=== PATIENT | female | born 1985 ===

== ENCOUNTER 2017-05-04 00:10 | Emergency (ER) | payer OTHER ==
[2017-05-04 00:23] VITALS: RESP 18
--- NOTE | 2017-05-04 01:40 | ED PDOC ---
HPI: Female Pain Time Seen by Provider: 05/04/17 00:20 Chief Complaint (Nursing): Female Genitourinary Chief Complaint (Provider): Vaginal bleeding History Per: Patient History/Exam Limitations: no limitations Onset/Duration Of Symptoms: Days (x2 weeks) Current Symptoms Are (Timing): Still Present Additional Complaint(s): Kristen Medina is a 31 year old female with previous surgical history of sections, hernia repair, and tonsillectomy who presents to the emergency department with a complaint of vaginal bleeding associated with cramping ongoing for 2 weeks. Denies any nausea, vomiting, diarrhea, fever, chills, or urinary symptoms. Recently seen by her neighborhood conservation officer, Mateus Valdovinos MD , who diagnosed her with miscarriage. States that her bleeding has recently increased and experiencing blood clots. LMP: 03/10/17 G8, P2, A5 PMD: Jaycee Dubois MD Past Medical History Reviewed: Historical Data, Nursing Documentation, Vital Signs Vital Signs: Last Vital Signs Temp 98.1 F 05/04/17 00:19 Pulse 109 H 05/04/17 00:19 Resp 18 05/04/17 00:19 BP 127/79 05/04/17 00:19 Pulse Ox 99 05/04/17 00:19 - Medical History PMH: Anxiety, Depression - Surgical History Other surgeries: see above - Family History Family History: States: Unknown Family Hx - Social History Current smoker - smoking cessation education provided: No Alcohol: Social Drugs: Denies - Home Medications Home Medications: Ambulatory Orders Medication Instructions Recorded Amoxicillin/Clavulanate Pota 1 tab PO BID #14 tab 07/21/14 [Augmentin 875 mg-125 mg] Multivitamin4 [One Daily 1 tab PO DAILY 08/23/14 Multivitamins] [place]-3/Dha/Epa/Fish Oil [[place]-3] 1 cap PO DAILY 08/23/14 - Allergies Allergies/Adverse Reactions: Allergies Allergy/AdvReac Type Severity Reaction Status Date / Time No Known Allergies Allergy Verified 07/21/14 17:15 Review of Systems ROS Statement: Except As Marked, All Systems Reviewed And Found Negative Constitutional: Negative for: Fever, Chills Gastrointestinal: Negative for: Nausea, Vomiting, Diarrhea Genitourinary Female: Positive for: Vaginal Bleeding (associated with cramping and blood clots). Negative for: Dysuria, Incontinence, Hematuria Physical Exam - Reviewed Nursing Documentation Reviewed: Yes Vital Signs Reviewed: Yes - Physical Exam Appears: Positive for: Well, Non-toxic, No Acute Distress Head Exam: Positive for: ATRAUMATIC, NORMAL INSPECTION, NORMOCEPHALIC Skin: Positive for: Normal Color, Warm, Dry ENT: Positive for: Normal ENT Inspection Neck: Positive for: Normal, Painless ROM, Supple Cardiovascular/Chest: Positive for: Regular Rate, Rhythm Respiratory: Positive for: Normal Breath Sounds. Negative for: Respiratory Distress Gastrointestinal/Abdominal: Positive for: Normal Exam, Bowel Sounds, Soft. Negative for: Tenderness, Mass Pelvic Exam: Positive for: External Exam Normal, Active Bleeding (with clots intermittently. 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 Negative for: No Masses Back: Positive for: Normal Inspection. Negative for: L CVA Tenderness, R CVA Tenderness Extremity: Positive for: Normal ROM. Negative for: Pedal Edema Neurologic/Psych: Positive for: Alert, Oriented - Laboratory Results Result Diagrams: 05/04/17 01:35 05/04/17 01:35 - ECG O2 Sat by Pulse Oximetry: 99 (RA) Pulse Ox Interpretation: Normal Medical Decision Making Medical Decision Making: Initial Impression: Vaginal bleeding Initial Plan: * Type and screen * Beta-HCG * Labs * Urine C&S * Urinalysis * Reevaluate Time:03:07 --HCG levels: 1896. Has decreased significantly compared to last blood test on 04/23/17 which showed levels of 2860. Patient is miscarrying and is advised to follow up with Dr. Valdovinos in office. Time:04:45 Upon provider reevaluation patient is feeling better, Rh+, medically stable and requires no further treatment in the ED at this time. hgb stable. Patient will be discharged home. Counseling was provided and all questions were answered regarding diagnosis and need for follow up with [employer]. There is agreement to discharge plan. Return if symptoms persist or worsen. Clinical Impression: Spontaneous miscarriage Scribe Attestation: Documented by Domitila Cruz, acting as a scribe for Chris Mendoza MD. Provider Scribe Attestation: All medical record entries made by the Scribe were at my direction and personally dictated by me. I have reviewed the chart and agree that the record accurately reflects my personal performance of the history, physical exam, medical decision making, and the department course for this patient. I have also personally directed, reviewed, and agree with the discharge instructions and disposition. Disposition - Clinical Impression Clinical Impression: Miscarriage - Patient ED Disposition Is Patient to be Admitted: No Doctor Will See Patient In The: Office Counseled Patient/Family Regarding: Studies Performed, Diagnosis, Need For Followup - Disposition Disposition: Routine/Home Disposition Time: 04:25 Condition: IMPROVED Additional Instructions: follow up with Dr Valdovinos on friday return to the ED with any worsening or concerning symptoms Instructions: Spontaneous Miscarriage (ED)
[2017-05-04 02:25] LABS: BASO % 0.3 % (0.0-2.0); EOS # 0.2 K/uL (0.0-0.7); EOS % 1.7 % (0.0-4.0); HEMOGLOBIN 12.8 g/dL (12.0-16.0); LYMPH # 2.4 K/uL (1.0-4.3); LYMPH % 17.5 % (20.0-40.0); MEAN CELL VOLUME 89.8 fl (81.0-99.0); MEAN CORPUSCULAR HEMOGLOBIN 29.8 pg (27.0-31.0); MEAN CORPUSCULAR HGB CONC 33.2 g/dL (33.0-37.0); MEAN PLATELET VOLUME 8.8 fl (7.2-11.7); MONO # 0.9 K/uL (0.0-0.8); MONO % 6.3 % (0.0-10.0); NEUT % 74.2 % (50.0-75.0); RBC 4.28 Mil/uL (3.80-5.20); RED CELL DISTRIBUTION WIDTH 12.9 % (11.5-14.5); WHITE BLOOD COUNT 13.5 K/uL (4.8-10.8)
[2017-05-04 02:50] LABS: ALB/GLOB RATIO 1.6 (1.0-2.1); ALBUMIN 4.4 g/dL (3.5-5.0); ALT/SGPT 48 U/L (9-52); AST/SGOT 42 U/L (14-36); BLOOD UREA NITROGEN 10 mg/dl (7-17); CALCIUM 9.6 mg/dL (8.4-10.2); GFR AFRICAN-AMERICAN > 60; GFR NON-AFRICAN AMERICAN > 60
[2017-05-04] MEDS ORDERED: Sodium Chloride 0.9% 1,000 ML IV STA (03:06)
[2017-05-04 05:58] VITALS: BP 103/60; PULSE 80; TEMP 98.7
[2017-05-04 19:34] VITALS: O2SAT 99
== END 2017-05-04 06:08 | disposition home or self-care (01) ==
LOC: H.ER 00:10
DX: O03.9 Complete or unspecified spontaneous abortion without complication (principal); F41.9 Anxiety disorder, unspecified

== ENCOUNTER 2017-11-26 19:53 | Emergency (ER) | payer MEDICAID, OTHER ==
[2017-11-26 20:29] VITALS: BP 125/62; PULSE 93; RESP 16; O2SAT 99
--- NOTE | 2017-11-26 20:49 | ED PDOC ---
HPI: Female Pain Time Seen by Provider: 11/26/17 20:48 Chief Complaint (Nursing): Female Genitourinary Chief Complaint (Provider): DYSURIA History Per: Patient (32 Y/O FEMALE HERE WITH 2 WEEKS DYSURIA AND URINARY FREQUENCY. NOTES LEFT FLANK PAIN TODAY. NO FEVERS/CHILLS/VOMITING ETC. ) Past Medical History Reviewed: Historical Data, Nursing Documentation, Vital Signs Vital Signs: Last Vital Signs Temp Pulse 93 H 11/26/17 20:26 Resp 16 11/26/17 20:26 BP 125/62 11/26/17 20:26 Pulse Ox 99 11/26/17 20:26 - Medical History PMH: Anxiety, Depression - Family History Family History: States: Unknown Family Hx - Home Medications Home Medications: Ambulatory Orders Medication Instructions Recorded Amoxicillin/Clavulanate Pota 1 tab PO BID #14 tab 07/21/14 [Augmentin 875 mg-125 mg] Multivitamin4 [One Daily 1 tab PO DAILY 08/23/14 Multivitamins] [place]-3/Dha/Epa/Fish Oil [[place]-3] 1 cap PO DAILY 08/23/14 Ciprofloxacin HCl [Cipro] 500 mg PO BID #14 tablet 11/26/17 Naproxen 500 mg PO Q12 PRN #14 tab 11/26/17 Phenazopyridine HCl [Pyridium] 200 mg PO BID PRN #5 tablet 11/26/17 - Allergies Allergies/Adverse Reactions: Allergies Allergy/AdvReac Type Severity Reaction Status Date / Time No Known Allergies Allergy Verified 07/21/14 17:15 Review of Systems ROS Statement: Except As Marked, All Systems Reviewed And Found Negative Physical Exam - Reviewed Nursing Documentation Reviewed: Yes Vital Signs Reviewed: Yes - Physical Exam Appears: Positive for: Well, Non-toxic, No Acute Distress Head Exam: Positive for: ATRAUMATIC, NORMAL INSPECTION, NORMOCEPHALIC Skin: Positive for: Normal Color, Warm, DRY Eye Exam: Positive for: EOMI, Normal appearance, PERRL ENT: Positive for: Normal ENT Inspection Neck: Positive for: Normal, Painless ROM Cardiovascular/Chest: Positive for: Regular Rate, Rhythm Respiratory: Positive for: CNT, Normal Breath Sounds Gastrointestinal/Abdominal: Positive for: Normal Exam, Bowel Sounds, Soft Back: Positive for: Normal Inspection. Negative for: L CVA Tenderness, R CVA Tenderness Extremity: Positive for: Normal ROM Neurologic/Psych: Positive for: Alert, Oriented - Laboratory Results Urine POC: Negative Urine dip results: Positive for: Leukocyte Esterase, Nitrate. Negative for: Blood, Ketones, Glucose, Bilirubin, Protein - ECG O2 Sat by Pulse Oximetry: 99 - Progress ED Course And Treament: patient afebrile in ED. Cipro 500mg x 1 dose pyridium 200 mg x 1 dose Disposition - Clinical Impression Clinical Impression: Urinary tract infection - Patient ED Disposition Is Patient to be Admitted: No - Disposition Disposition: Routine/Home Disposition Time: 21:23 Condition: FAIR Prescriptions: Ciprofloxacin HCl [Cipro] 500 mg PO BID #14 tablet Naproxen 500 mg PO Q12 PRN #14 tab PRN Reason: Pain, Moderate (4-7) Phenazopyridine HCl [Pyridium] 200 mg PO BID PRN #5 tablet PRN Reason: Urinary Discomt Instructions: Urinary Tract Infection in Women (DC) Forms: [employer] ([place]ian), [facility] ED School/Work Excuse
[2017-11-26 21:35] VITALS: TEMP 98.4
[2017-11-26 22:05] LABS: SQUAMOUS EPITHIAL 3 /hpf (0-5); URINE BACTERIA FEW (<OCC); URINE BILIRUBIN NEGATIVE (NEGATIVE); URINE BLOOD MODERATE (NEGATIVE); URINE CLARITY CLOUDY (Clear); URINE COLOR YELLOW (YELLOW); URINE GLUCOSE (UA) NEG (Normal); URINE LEUKOCYTE ESTERASE LARGE Leu/uL (Negative); URINE NITRATE POSITIVE (NEGATIVE); URINE PROTEIN 100 mg/dL (NEGATIVE); WBC CLUMPS FEW /hpf
== END 2017-11-26 21:39 | disposition home or self-care (01) ==
LOC: H.ER 19:53
DX: N39.0 Urinary tract infection, site not specified (principal); F32.9 Major depressive disorder, single episode, unspecified; F41.9 Anxiety disorder, unspecified